=== PATIENT | male | born 1990 | race Caucasian/White ===

== ENCOUNTER 2017-03-24 18:57 | Emergency (ER) | payer BC ==
[2017-03-24] MEDS ORDERED: Lidocaine 1% 10 ML MDV INJECT ONE (19:21)
[2017-03-24] MEDS ORDERED: Diphtheria,Pertussis(Acell),Tetanus Vaccine 0.5 ML Syringe IM ONE (19:21)
[2017-03-24] MEDS ORDERED: Lidocaine 1% 20 ML MDV ONE (19:25)
[2017-03-24] MEDS ORDERED: Lidocaine 1% 20 ML MDV INJECT ONE (19:26)
--- NOTE | 2017-03-24 19:27 | EDM.PDOC ---
ED HPI GENERAL MEDICAL PROBLEM - General Chief Complaint: Laceration Stated Complaint: LACERATION RT FOOT Time Seen by Provider: 03/24/17 19:11 Source of Information: Reports: Patient History Limitations: Reports: No Limitations - History of Present Illness INITIAL COMMENTS - FREE TEXT/NARRATIVE: HISTORY AND PHYSICAL: History of present illness: Patient is a 27-year-old male who presents to the emergency room today with complaints of a laceration across the top of his right foot. States he was using a meat brenda when it slipped out of his hands and fell onto his foot creating a 3.5 cm laceration. Patient is ambulatory and able to weight-bear. He is to have no tendon involvement. Unsure of his last tetanus, will update today. Review of systems: As per history of present illness and below otherwise all systems reviewed and negative. Past medical history: As per history of present illness and as reviewed below otherwise noncontributory. Surgical history: As per history of present illness and as reviewed below otherwise noncontributory. Social history: No reported history of drug or alcohol abuse. Family history: As per history of present illness and as reviewed below otherwise noncontributory. Physical exam: General: Nontoxic-appearing 27-year-old male. Alert and oriented. Appears in no acute distress. HEENT: Atraumatic, normocephalic, pupils reactive, negative for conjunctival pallor or scleral icterus, mucous membranes moist, throat clear, neck supple, nontender, trachea midline. Lungs: Clear to auscultation, breath sounds equal bilaterally, chest nontender. Heart: S1S2, regular, negative for clicks, rubs, or JVD. Abdomen: Soft, nondistended, nontender. Negative for masses or hepatosplenomegaly. Negative for costovertebral tenderness. Pelvis: Stable nontender. Genitourinary: Deferred. Rectal: Deferred. Extremities: 3.5 cm laceration to the anterior mid right foot. Laceration is agape with minimal bleeding. No tendon involvement noted. + CMS. Strong pedal pulses bilaterally. Neurovascular unremarkable. Neuro: Awake, alert, oriented. Cranial nerves II through XII unremarkable. Cerebellum unremarkable. Motor and sensory unremarkable throughout. Exam nonfocal. Percent lidocaine was used to anesthetize the area. 5-0 was used to suture the laceration,#8 interrupted sutures were completed. Nonstick dressing with Hema wrap for compression was applied. We discussed signs and symptoms of infection and what to monitor for it which would prompt him to come back to the emergency room. Patient voices understanding and is agreeable to plan of care. Denies any further questions at this time. Diagnostics: X-ray Therapeutics: Lidocaine, tetanus Impression: Laceration Plan: 1. Sutures to be removed and 7-10 days. His monitor for signs and symptoms of infection as we discussed. Keep the wound clean and dry. 2. Follow up with her primary caregiver in the next 1-2 days. Return to the ED as needed and as discussed. Definitive disposition and diagnosis as appropriate pending reevaluation and review of above. - Related Data Allergies Allergy/AdvReac Type Severity Reaction Status Date / Time No Known Allergies Allergy Verified 03/24/17 19:10 Home Meds: Home Meds . [No Known Home Meds] 03/24/17 [History] ED ROS GENERAL - Review of Systems Review Of Systems: ROS reveals no pertinent complaints other than HPI. ED EXAM, SKIN/RASH Exam: See Below (See dictation) ED SKIN PROCEDURES - Laceration/Wound Repair Right Foot Lac/Wound length In cm: 3.5 Appearance: Subcutaneous Distal NVT: Neuro & Vascular Intact Anesthetic Type: Local Local Anesthesia - Lidocaine (Xylocaine): 1% Plain Local Anesthetic Volume: Other (6cc) Skin Prep: Chlorhexidine (Hibiciens), Saline, Sterile Drape Saline Irrigation (cc's): 50 Exploration/Debridement/Repair: Wound Explored, In a Bloodless Field, No Foreign Material Found Closed with: Sutures Suture Size: other (5-0) # of Sutures: 8 Suture Type: Nylon Course - Vital Signs Last Recorded V/S: Last Vital Signs Temp 97.5 F 03/24/17 19:00 Pulse 68 03/24/17 19:00 Resp 18 03/24/17 19:00 BP 117/76 03/24/17 19:00 Pulse Ox 100 03/24/17 19:00 - Orders/Labs/Meds Orders: Active Orders 24 hr Category Date Time Status Vaccines to be Administered [RC] PER UNIT ROUTINE Care 03/24/17 19:21 Active Foot 2V Rt [CR] Stat Exams 03/24/17 19:28 Ordered Meds: Medications Discontinued Medications Generic Name Dose Route Start Last Admin Trade Name Freq PRN Reason Stop Dose Admin Bacitracin 1 dose 03/24/17 19:40 03/24/17 19:49 Bacitracin Oint 1 Gm TOP 03/24/17 19:41 1 dose ONETIME ONE Administration Diphtheria/Tetanus/Acell Pertussis 0.5 ml 03/24/17 19:21 03/24/17 19:30 Adacel IM 03/24/17 19:22 0.5 ml .ONCE ONE Administration Lidocaine HCl 10 ml 03/24/17 19:21 03/24/17 19:30 Xylocaine 1% INJECT 03/24/17 19:22 Not Given ONETIME ONE Lidocaine HCl 20 ml 03/24/17 19:26 03/24/17 19:30 Xylocaine 1% INJECT 03/24/17 19:27 20 ml ONETIME ONE Administration Lidocaine HCl Confirm 03/24/17 19:25 03/24/17 19:30 Xylocaine 1% Administered 03/24/17 19:26 Not Given Dose 20 ml .ROUTE .STK-MED ONE Departure - Departure Time of Disposition: 20:02 Disposition: Home, Self-Care 01 Clinical Impression: Laceration - Discharge Information Referrals: Drake Waterman MD [Primary Care Provider] - Forms: ED Department Discharge Additional Instructions: My general discharge The following information is given to patients seen in the emergency department who are being discharged to home. This information is to outline your options for follow-up care. We provide all patients seen in our emergency department with a follow-up referral. The need for follow-up, as well as the timing and circumstances, are variable depending upon the specifics of your emergency department visit. If you don't have a primary care physician on staff, we will provide you with a referral. We always advise you to contact your personal physician following an emergency department visit to inform them of the circumstance of the visit and for follow-up with them and/or the need for any referrals to a consulting specialist. The emergency department will also refer you to a specialist when appropriate. This referral assures that you have the opportunity for follow-up care with a specialist. All of these measure are taken in an effort to provide you with optimal care, which includes your follow-up. Under all circumstances we always encourage you to contact your private physician who remains a resource for coordinating your care. When calling for follow-up care, please make the office aware that this follow-up is from your recent emergency room visit. If for any reason you are refused follow-up, please contact the [facility] at and asked to speak to the emergency department charge nurse. [facility] [address] [place] [id number] 1. Sutures to be removed and 7-10 days. His monitor for signs and symptoms of infection as we discussed. Keep the wound clean and dry. 2. Follow up with her primary caregiver in the next 1-2 days. Return to the ED as needed and as discussed. - My Orders Last 24 Hours: My Active Orders 03/24/17 19:21 Vaccines to be Administered [RC] PER UNIT ROUTINE 03/24/17 19:28 Foot 2V Rt [CR] Stat - Assessment/Plan Last 24 Hours: My Active Orders 03/24/17 19:21 Vaccines to be Administered [RC] PER UNIT ROUTINE 03/24/17 19:28 Foot 2V Rt [CR] Stat
[2017-03-24] MEDS ORDERED: Bacitracin Oint 1 GM U/D Packet TOP ONE (19:40)
--- NOTE | 2017-03-25 13:00 | CR ---
EXAM DATE: 03/24/17 PATIENT'S AGE: 27 Patient: MENG FAJARDO Facility: [place], [place] Site . Site : 1990 Study: XRay Extremity Right foot [id number]/[id number] 7:50:00 PM Ordering Physician: Doctor Quijano Final Report: INDICATION: Laceration on dorsum of foot. COMPARISON: none TECHNIQUE: Two-view right foot FINDINGS: There is a soft tissue laceration overlying the midfoot. There is no evidence of a radiopaque foreign body within the wound. The bones are anatomically aligned. There is no evidence of fracture, erosion or intrinsic bone lesion. IMPRESSION: No evidence of radiopaque foreign body or fracture associated with the soft tissue laceration. Dictated by Nathanael Metz MD @ Mar 24 2017 8:07PM (Electronic Signature) Report Signed by Proxy. MICHELLE
== END 2017-03-24 20:05 | disposition home or self-care (01) ==
LOC: MW.ED 18:57
DX: S91.311A Laceration without foreign body, right foot, initial encounter (principal); Z23 Encounter for immunization; W29.0XXA Contact with powered kitchen appliance, initial encounter; W20.8XXA Other cause of strike by thrown, projected or falling object, initial encounter
CPT/HCPCS: 12002; 73620-26-RT; 73620-RT; 90471; 90715; 99283; 99283-25

== ENCOUNTER 2020-11-03 16:13 | Emergency (ER) | payer BC | END 2020-11-03 17:40 | disposition left against medical advice (07) | LOC: MW.ED 16:13 | DX: R50.9 Fever, unspecified (principal); Z53.21 Procedure and treatment not carried out due to patient leaving prior to being seen by health care provider ==

== ENCOUNTER 2022-09-12 09:54 | Day surgery (SDC) | payer BC ==
[~2022-09-12 09:54] MED LIST: Lactated Ringers 1,000 ML IV SCH
[2022-09-12] MEDS ORDERED: Lidocaine 2% 5 ML SDV ONE ×2 (11:29→11:30)
[2022-09-12] MEDS ORDERED: Propofol 200 MG/20 ML SDV ONE ×2 (11:30→11:51)
== END 2022-09-12 13:05 | disposition home or self-care (01) ==
LOC: MW.SDS 09:54
PROVIDERS: ATTEND Surgery
DX: K52.9 Noninfective gastroenteritis and colitis, unspecified (principal); K92.1 Melena; F41.9 Anxiety disorder, unspecified; K64.8 Other hemorrhoids; E78.5 Hyperlipidemia, unspecified; M54.2 Cervicalgia; G89.29 Other chronic pain; G43.909 Migraine, unspecified, not intractable, without status migrainosus; Z79.899 Other long term (current) drug therapy; Z88.0 Allergy status to penicillin; Z88.8 Allergy status to other drugs, medicaments and biological substances
CPT/HCPCS: 45380; J2704; J7120; J3490